=== PATIENT | female | born 1965 | race Caucasian/White ===

== ENCOUNTER 2019-11-08 13:42 | Outpatient (CLI) | payer OTHER, SELFPAY ==
--- NOTE | ~2019-11-08 | XR_ITS ---
XR foot RT min 3V 11/08/2019 14:06 INDICATION: Right foot pain after injury PROCEDURE: 4 views right foot COMPARISON: 09/12/2018 FINDINGS: Fracture, dislocation or subluxation is not identified. There is a nondisplaced fracture of the fourth metatarsal neck. Lisfranc joint intact. The soft tissues appear within normal limits. No foreign bodies are identified. IMPRESSION: 1: Acute nondisplaced fracture right fourth metatarsal neck. Reviewed, dictated and finalized at location A.
== END 2019-11-08 13:43 | disposition home or self-care (01) ==
LOC: ANHIMG 13:46
PROVIDERS: PCP Family Medicine; Visit Provider Physician Assistant
DX: S92.344A Nondisplaced fracture of fourth metatarsal bone, right foot, initial encounter for closed fracture (principal); X58.XXXA Exposure to other specified factors, initial encounter
CPT/HCPCS: 73630

== ENCOUNTER → 2020-01-24 09:52 | Outpatient (CLI) | payer OTHER, SELFPAY ==
--- NOTE | ~2020-01-24 | MM_ITS ---
EXAMINATION: MM diagnostic umm BI w ladan HISTORY: Follow-up right breast asymmetry TECHNIQUE: Additional 3-D tomosynthesis images of the breasts were performed and synthetic 2-D images were generated. CAD analysis was submitted and interpreted. COMPARISON: Comparison to multiple prior studies sequentially, with oldest reviewed study dated 08/29. BREAST PARENCHYMAL COMPOSITION: The breasts are extremely dense, which lowers the sensitivity of mamm ography. FINDINGS: There are no suspicious masses, calcifications or architectural distortion in either breast to suggest malignancy. IMPRESSION: 1. No mammographic evidence for malignancy in either breast. 2. Routine yearly screening mammogram and regular clinical breast examination are recommended. BI-RADS Category 1: Negative Reviewed, dictated and finalized at location A. IMPRESSION: 1. No mammographic evidence for malignancy in either breast. 2. Routine yearly screening mammogram and regular clinical breast examination a re recommended. BI-RADS Category 1: Negative
== END ==
PROVIDERS: Visit Provider Nurse Practitioner
DX: R92.8 Other abnormal and inconclusive findings on diagnostic imaging of breast (principal)
CPT/HCPCS: 77062; 77066; G0279

== ENCOUNTER 2020-02-07 10:42 | Outpatient (CLI) | payer OTHER, SELFPAY ==
--- NOTE | ~2020-02-07 | XR_ITS ---
EXAMINATION: XR tibia fibula LT 2V, XR ankle LT min 3V DATE: 02/07/2020 11:15 INDICATION: Left lower leg pain one week post injury TECHNIQUE: 1. Anteroposterior and lateral views of the affected tibia and fibula were obtained. 2. AP, lateral, oblique and mortise views of the left ankle were obtained. COMPARISON: None. FINDINGS: Alignment is normal. No fracture. Joint spaces are normal. Tiny plantar calcaneal spur. No left knee or ankle joint effusion. Focal soft tissue swelling along the medial aspect of the distal left lower leg. IMPRESSION: 1. No acute osseous abnormality. Reviewed, dictated and finalized at location A. IMPRESSION: 1. No acute osseous abnormality.
--- NOTE | ~2020-02-07 | XR_ITS ---
EXAMINATION: XR ribs LT 2V w CXR 2V DATE: 02/07/2020 11:16 INDICATION: Pleurodynia with posterior lower left rib pain post injury TECHNIQUE: PA and lateral views of the chest and 3 views of the left ribs were obtained. COMPARISON: Chest radiograph dated 08/07/2017 FINDINGS: No rib fractures identified. Lungs are hyperexpanded with flattening of the diaphragm. No focal airsp sharon opacities, pulmonary edema, pleural effusion or pneumothorax. Chronic mild anterior wedging of a couple mid thoracic vertebral bodies with moderate spondylosis. IMPRESSION: 1. No rib fracture or acute cardiopulmonary disease. Reviewed, dictated and finalized at location A.
== END 2020-02-07 10:43 | disposition home or self-care (01) ==
LOC: ANHIMG 10:48
PROVIDERS: PCP Family Medicine; Visit Provider Physician Assistant
DX: R07.81 Pleurodynia (principal); M79.672 Pain in left foot; S89.92XA Unspecified injury of left lower leg, initial encounter; X58.XXXA Exposure to other specified factors, initial encounter
CPT/HCPCS: 71046; 71100; 73590; 73610